=== PATIENT | female | born 1995 | race Caucasian/White ===

== ENCOUNTER 2016-10-12 20:33 | Emergency (ER) | payer OTHER ==
--- NOTE | ~2016-10-12 | ER ---
PATIENT'S NAME: ADOLFO MADISON [facility] AGE: 21 Y [address] ROOM: [place] [address] LOCATION: [facility] ADMIT DATE: 10/12/2016 ER/Outpatient Report DISCHARGE DATE: 10/12/2016 FAMILY PHYSICIAN: PHYSICIAN, NO ATTENDING PHYSICIAN: Lila Roche CHIEF COMPLAINT: Sore throat and a sore to her tongue. TIME OF THE PATIENT ARRIVAL: 2032 hours. TIMES OF THE PATIENT EVALUATION: 2044. HISTORY OF PRESENT ILLNESS: This is a 21-year-old female who presents to the ER who states that she has been having a sore throat for the past 48 hours. She states that she feels like she is having a hard time swallowing. She does not know if she has been running any fevers or not, but she did take some ibuprofen this afternoon. She states that she also has a sore to her tongue as well. She states that no one else who has been around has been ill. ALLERGIES: NO KNOWN ALLERGIES. MEDICATIONS: None. PAST MEDICAL HISTORY: Negative. PAST SURGERIES: None. SOCIAL HISTORY: Denies smoking, drug, or alcohol use. REVIEW OF SYSTEMS: A 10-point review of systems was completed and was negative with the exception of those discussed in the HPI. PHYSICAL EXAMINATION: VITAL SIGNS: Height 5 feet, 5 inches stated, weight 66.9 kg taken, blood pressure is 120/65, pulse 90, respirations 16, temperature 98.4 degrees, PATIENT'S NAME: ADOLFO MADISON [facility] AGE: 21 Y [address] ROOM: [place] [address] LOCATION: [facility] ADMIT DATE: 10/12/2016 ER/Outpatient Report DISCHARGE DATE: 10/12/2016 FAMILY PHYSICIAN: PHYSICIAN, NO ATTENDING PHYSICIAN: Lila Roche tympanically, and saturations 97% on room air. Sandro Coma Score is 15. GENERAL: Alert, calm, well-developed female, in no acute distress. HEENT: Head: Normocephalic. Eyes: Pupils are equal and reactive to light. Ears: TMs display good light reflexes bilaterally. Auditory canals clear. Nose: Turbinates pink with clear drainage. Throat: She is erythematic. She does have some tonsillar exudates now and then. She does display moist mucous membranes. She does have a canker sore noted to the right-side of her tongue as well. LUNGS: Clear to auscultation bilaterally. No wheeze or crackles. Normal respiratory effort. HEART: Regular rate and rhythm. No lifts, thrills, or murmurs. EXTREMITIES: No clubbing, cyanosis, or edema. Full range of motion of all limbs. LABORATORY DATA: CBC: White count is 5.0, hemoglobin is 13.0, and platelets 213. [place] was negative. Rapid strep was negative. IMPRESSION: Pharyngitis. ASSESSMENT AND PLAN: I did give the patient reassurance. I am going to cover her with a Z-Mikel to use as directed. I advised her to use Tylenol or ibuprofen as needed for pain. She needs to gargle, monitor her symptoms, and follow up with her primary care physician if she is not improving. The patient understands and agrees with care. HARSH MADRIGAL PA-C FOR MD ROMULO LUCAS/cynthia /[id number] d: 10/13/168 t: 10/16/16 0644, OUTPATIENT REPORT
[2016-10-12 20:58] LABS: BASOPHIL % 0.2 %; EOSINOPHIL # 0.1 K/uL (0.0-0.5); EOSINOPHIL % 1.4 %; HEMATOCRIT 39.2 % (33.0-46.0); IMMATURE GRANULOCYTE % 0.2 %; LYMPHOCYTE # 0.7 K/uL (0.8-4.0); LYMPHOCYTE % 14.3 %; MCH 29.5 pg (27.0-34.0); MCHC 33.2 gm/dL (32.0-36.5); MCV 89.1 fl (83.0-98.0); MONOCYTE # 0.6 K/uL (0.0-1.0); MONOCYTE % 12.1 %; MPV 8.9 fl (9.4-12.4); NEUTROPHIL # (ANC) 3.6 K/uL (1.8-7.8); NEUTROPHIL % 71.8 %; NRBC % 0 /100WBC (0-0.00); PLATELET COUNT 213 K/uL (150-450)
== END 2016-10-12 21:35 | disposition disaster alternative care site (69) ==
LOC: GMED 20:33
PROVIDERS: Physician Assistant Medical
DX: J02.9 Acute pharyngitis, unspecified (principal)